=== PATIENT | male | born 1985 | race Two or more races ===

== ENCOUNTER → 2017-10-29 | Emergency (ER) | payer OTHER ==
[~2017-10-29] VITALS: Ht 170.2 cm; Wt 90.7 kg
[~2017-10-29] MED LIST: AUGMENTIN PO; GILTUSS TR TAB1 EACH PO; SINGULAIR 10MG10 MG PO; TUSSI PRES-B L120 M1 PO; ZITHROMAX TRI-500 MG PO
== END | disposition home or self-care (01) ==
LOC: ER 08:15
DX: B34.9 Viral infection, unspecified (principal)

== ENCOUNTER 2017-11-05 08:25 | Emergency (ER) | payer OTHER ==
[~2017-11-05] VITALS: Ht 170.2 cm; Wt 86.2 kg
[~2017-11-05 08:25] MED LIST changes: -AUGMENTIN PO; -GILTUSS TR TAB1 EACH PO
[2017-11-05] MEDS ORDERED: AUGMENTIN PO ×2 (09:57→09:59)
[2017-11-05] MEDS ORDERED: GILTUSS TR TAB1 EACH PO ×2 (09:57→09:59)
== END 2017-11-05 10:15 | disposition home or self-care (01) ==
LOC: ER 08:25
DX: J06.9 Acute upper respiratory infection, unspecified (principal)

== ENCOUNTER 2018-04-16 07:51 | Emergency (ER) | payer OTHER ==
[~2018-04-16] VITALS: Ht 167.6 cm; Wt 86.2 kg
[~2018-04-16 07:51] MED LIST changes: +AUGMENTIN PO; +GILTUSS TR TAB1 EACH PO
== END 2018-04-16 10:10 | disposition home or self-care (01) ==
LOC: ER 07:51
DX: M62.838 Other muscle spasm (principal)

== ENCOUNTER 2019-01-05 19:31 | Emergency (ER) | payer OTHER ==
[~2019-01-05] VITALS: Ht 167.6 cm; Wt 86.2 kg
[2019-01-05] MEDS ORDERED: ORPHENADRINE C100 MG PO (23:15)
[2019-01-05] MEDS ORDERED: KETO10TA2 PO (23:15)
== END 2019-01-05 23:29 | disposition home or self-care (01) ==
LOC: ER 19:31
DX: M62.838 Other muscle spasm (principal)

== ENCOUNTER 2021-11-13 17:56 | Emergency (ER) | payer OTHER ==
[~2021-11-13] VITALS: Ht 167.6 cm; Wt 94.8 kg
[~2021-11-13 17:56] MED LIST changes: +KETO10TA2 PO; +ORPHENADRINE C100 MG PO
[2021-11-13] MEDS ORDERED: CIPRO500 MG PO (21:17)
[2021-11-16] MEDS ORDERED: NEPHPLEX RX TA1 EACH (10:10)
== END 2021-11-13 21:13 | disposition home or self-care (01) ==
LOC: ER 17:56
DX: R53.1 Weakness (principal); G25.1 Drug-induced tremor; R53.83 Other fatigue; N30.01 Acute cystitis with hematuria; B96.1 Klebsiella pneumoniae [K. pneumoniae] as the cause of diseases classified elsewhere; T50.995A Adverse effect of other drugs, medicaments and biological substances, initial encounter; Y92.89 Other specified places as the place of occurrence of the external cause

== ENCOUNTER → 2021-11-16 | Emergency (ER) | payer OTHER ==
[~2021-11-16] VITALS: Ht 167.6 cm; Wt 94.8 kg
[~2021-11-16] MED LIST changes: +CIPRO500 MG PO; +NEPHPLEX RX TA1 EACH
== END | disposition home or self-care (01) ==
LOC: ER 10:01
DX: T78.49XA Other allergy, initial encounter (principal); R60.0 Localized edema; T36.8X5A Adverse effect of other systemic antibiotics, initial encounter; Y92.9 Unspecified place or not applicable; X58.XXXA Exposure to other specified factors, initial encounter

== ENCOUNTER 2022-12-17 21:25 | Emergency (ER) | payer OTHER ==
[~2022-12-17] VITALS: Ht 167.6 cm; Wt 96.6 kg
== END 2022-12-17 22:56 | disposition home or self-care (01) ==
LOC: ER 21:25
DX: M62.838 Other muscle spasm (principal)